=== PATIENT | female | born 1995 | race Two or more races ===

== ENCOUNTER 2019-01-28 12:58 | Emergency (ER) | payer MEDICAID, OTHER ==
[~2019-01-28] VITALS: Ht 160 cm; Wt 75.5 kg
[~2019-01-28 12:58] MED LIST: DOXY1TAB3 PO; FAMO-79 PO; METO10TA82 PO; ONDA4TAB10 PO; PROM25SU34 RC
--- NOTE | 2019-01-28 13:31 | NUR ---
TRIAGE ASSESSMENT DISCUSSED WITH DR. IVORY. PT OK TO GO TO [facility] FOR EVALUATION
--- NOTE | 2019-01-28 15:51 | NUR ---
PT. HAS A SLING IN PLACE TO HER RIGHT ARM. CMS CHECKS ARE INTACT. PULSES +2. PT. WAS GIVEN DISCHARGE INSTRUCTIONS AND SCRIPTS WITH UNDERSTANDING VERBALIZED ALONG WITH WILLINGNESS TO COMPLY. PT. WAS AMBULATORY TO THE DISCHARGE DESK. VSS.
[2019-01-28 15:53] VITALS: BP 131/85
== END 2019-01-28 15:55 | disposition home or self-care (01) ==
LOC: ED 15:49
DX: S16.1XXA Strain of muscle, fascia and tendon at neck level, initial encounter (principal); S40.011A Contusion of right shoulder, initial encounter; S50.01XA Contusion of right elbow, initial encounter; S80.02XA Contusion of left knee, initial encounter; S09.8XXA Other specified injuries of head, initial encounter; V49.49XA Driver injured in collision with other motor vehicles in traffic accident, initial encounter; Y93.89 Activity, other specified; Y92.89 Other specified places as the place of occurrence of the external cause; Y99.8 Other external cause status
CPT/HCPCS: 70450; 72125; 99284